=== PATIENT | female | born 1995 | race African-American/Black ===

== ENCOUNTER 2016-08-22 12:52 | Emergency (ER) | payer MEDICAID ==
[~2016-08-22] VITALS: Ht 170.2 cm; Wt 63.5 kg
[2016-08-22 13:09] VITALS: BP 129/63
[2016-08-22 14:48] LABS: Basophils # (auto) 0 uL; Basophils % (auto) 0.3 % (0.0-2.0); Eosinophils # (auto) 0 uL; Eosinophils % (auto) 0.2 % (0.0-7.0); Hematocrit 38.2 % (36.0-46.0); Hemoglobin 12.1 g/dL (12.2-16.2); Lymphocytes # (auto) 2.2 uL; Lymphocytes % (auto) 24.2 % (10.0-50.0); Mean Corpuscular Hgb Conc. 31.8 g/dL (32.0-36.0); Mean Corpuscular Volume 88.2 fL (80.0-100.0); Mean Platelet Volume 8.2 fL (7.4-10.4); Monocytes # (auto) 0.7 uL; Neutrophils # (auto) 6.1 uL; Neutrophils % (auto) 67.3 % (37.0-80.0); Platelet Count (auto) 288 10^3/uL (140-450); Red Cell Distribution Width 14.6 % (11.6-16.0)
[2016-08-22 15:01] LABS: Albumin 3.7 g/dL (3.4-5.0); BUN/Creatinine Ratio 13.6; Calcium 8.7 mg/dL (8.5-10.1); Potassium 3.6 mmol/L (3.5-5.1)
[2016-08-22 15:03] LABS: Bilirubin, Total 0.3 mg/dL (0.2-1.0); Total Protein 7.7 g/dL (6.4-8.2)
[2016-08-22 15:38] LABS: Urine Bilirubin Negative (Negative); Urine Blood Negative /uL (Negative); Urine Color Yellow (Yellow); Urine Glucose Normal (Normal); Urine Ketone Negative (Negative); Urine Nitrite Negative (Negative); Urine RBC 3 /hpf (0 - 4); Urine Squamous Epithelial Cell FEW /hpf (<5); Urine Urobilinogen Normal (Negative)
== END 2016-08-22 18:47 | disposition left against medical advice (07) ==
LOC: ER 12:52
DX: O26.891 Other specified pregnancy related conditions, first trimester (principal); R10.9 Unspecified abdominal pain; Z3A.09 9 weeks gestation of pregnancy; Z53.21 Procedure and treatment not carried out due to patient leaving prior to being seen by health care provider
CPT/HCPCS: 36415; 76801; 76817; 80053; 81001; 84702; 85025